=== PATIENT | male | born 1955 | race Caucasian/White ===

== ENCOUNTER 2018-06-12 16:33 | Emergency (ER) | payer SELFPAY ==
[2018-06-12] MEDS ORDERED: Magnesium Sulfate 2 GM/NS 0.9% 50 ML BAG ONE (16:53)
[2018-06-12 17:03] LABS: INR-International Normal Ratio 0.9; PTT 28.7 SEC (22.9-36.1); Prothrombin Time 12.6 SEC (12.0-14.7)
--- NOTE | 2018-06-12 17:08 | RAD ---
FRONTAL AND LATERAL IMAGING CHEST: 06/12/18 COMPARISON: None. HISTORY: Dyspnea. FINDINGS: The lungs are hyperinflated with increased linear interstitial density noted throughout both lungs wi th associated emphysematous change. No pneumothorax, pleural fluid, lobar consolidation, or alveolar edema. IMPRESSION: Interstitial prominence with emphysematous change and pulmonary hyperinflation, evidence of COPD in t he proper clinical setting. POS: [facility]
[2018-06-12 17:14] LABS: ALT (SGPT) 22 U/L (8-55); AST (SGOT) 17 U/L (5-34); Albumin 4.3 g/dL (3.5-5.0); Alkaline Phosphatase 89 U/L (40-150); Anion Gap 13 mmol/L (10-20); BUN (Urea Nitrogen) 9 mg/dL (8.4-25.7); Bilirubin, Total 1.3 mg/dL (0.2-1.2); CK (CPK) 92 U/L (30-200); Calc. Creatinine Clearance 0 mL/min (70-130); Calcium 9.2 mg/dL (7.8-10.44); Carbon Dioxide 29 mmol/L (22-29); Chloride 100 mmol/L (98-107); Estimated GFR-MDRD Greater than 90; Globulin 2.4 g/dL (2.4-3.5); Glucose 112 mg/dL (70-105); Magnesium 2.4 mg/dL (1.6-2.6); Potassium 3.6 mmol/L (3.5-5.1); Protein, Total 6.7 g/dL (6.0-8.3); Sodium 138 mmol/L (136-145)
[2018-06-12 17:15] LABS: CKMB 3.5 ng/mL (0-6.6); Troponin I 0.011 ng/mL (< 0.028)
[2018-06-12] MEDS ORDERED: Azithromycin 250 MG TAB ONE (17:35)
== END 2018-06-12 17:40 | disposition home or self-care (01) ==
LOC: MADERS 16:33
DX: J44.1 Chronic obstructive pulmonary disease with (acute) exacerbation (principal); F17.200 Nicotine dependence, unspecified, uncomplicated
CPT/HCPCS: 36415; 71046; 80053; 82550; 82553; 83735; 83880; 84484; 85610; 85730; 94760; 96365; J3475; J7620

== ENCOUNTER 2019-01-01 10:06 | Emergency (ER) | payer SELFPAY ==
[2019-01-01] MEDS ORDERED: Sodium Chloride 0.9% 1,000 ML ONE (10:26)
[2019-01-01] MEDS ORDERED: methylPREDNISolone Sod Succ/PF 125 MG/2 ML VIAL ONE (10:26)
[2019-01-01 10:38] LABS: #Basophils 0.1 thou/uL (0.0-0.2); #Eosinphils 0.4 thou/uL (0.0-0.7); #Lymphocytes 1.3 thou/uL (1.20-3.40); #Monocytes 0.6 thou/uL (0.11-0.59); %Basophils 1.8 % (0.0-1.0); %Eosinophils 5.5 % (0.0-10.0); %Lymphocytes 17.4 % (21.0-51.0); %Monocytes 7.8 % (0.0-10.0); %Neutrophils 67.7 % (42.0-75.0); Hemoglobin 16.2 g/dL (14.0-18.0); Mean Corpuscular HGB CONC 31.5 g/dL (32.0-36.0); Mean Corpuscular Hemoglobin 27.5 pg (27.0-31.0); Mean Corpuscular Volume 87.1 fL (78.0-98.0); Mean Platelet Volume 11.1 fL (7.4-10.4); Platelet Count 234 thou/uL (130-400); RBC Distribution Width 11.7 % (11.5-14.5); Red Blood Cell (RBC) Count 5.89 mill/uL (4.70-6.10); White Blood Cell (WBC) Count 7.4 thou/uL (4.8-10.8)
[2019-01-01 10:46] LABS: ALT (SGPT) 35 U/L (8-55); AST (SGOT) 22 U/L (5-34); Albumin 4.6 g/dL (3.4-4.8); Alkaline Phosphatase 144 U/L (40-150); Anion Gap 16 mmol/L (10-20); BUN (Urea Nitrogen) 10 mg/dL (8.4-25.7); Calc. Creatinine Clearance 0 mL/min (70-130); Carbon Dioxide 31 mmol/L (23-31); Chloride 98 mmol/L (98-107); Estimated GFR-MDRD 88; Globulin 2.8 g/dL (2.4-3.5); Glucose 102 mg/dL (80-115); Protein, Total 7.4 g/dL (5.8-8.1); Sodium 141 mmol/L (136-145)
--- NOTE | 2019-01-01 11:25 | RAD ---
PA AND LATERAL CHEST: Date: 01/01/19 COMPARISON: 06/12/18 study. HISTORY: Shortness of breath. History of COPD. FINDINGS: Heart size is within normal limits. There are radiographic changes of COPD. No significant bony findi ngs. IMPRESSION: COPD change. POS: [facility]
[2019-01-01] MEDS ORDERED: Albuterol Sulfate 2.5 mg/3 ml Neb ONE (12:37)
[2019-01-01] MEDS ORDERED: Sodium Chloride For Inhalation 0.9% 3 ML NEB ONE (12:38)
== END 2019-01-01 13:45 | disposition left against medical advice (07) ==
LOC: MADERS 10:06
DX: J44.1 Chronic obstructive pulmonary disease with (acute) exacerbation (principal); Z71.6 Tobacco abuse counseling; F17.200 Nicotine dependence, unspecified, uncomplicated
CPT/HCPCS: 36415; 71046; 80053; 83605; 83880; 84484; 85025; 87040; 87804; 93005; 94640; 94760; 96361; 96374; 99406; J2930; J7050; J7611; J7620